=== PATIENT | male | born 1960 | race Two or more races ===

== ENCOUNTER 2025-02-21 19:14 | Inpatient (IN) | payer MEDICARE, OTHER ==
[~2025-02-21] VITALS: Ht 172.7 cm; Wt 72.6 kg
[2025-02-21 20:50] LABS: PLATELET COUNT (AUTO) 197 K/uL (150-450); RED BLOOD CELL COUNT(AUTO) 4.56 MIL/uL (4.5-6.0); RED CELL DISTRIBUTION WIDTH 14.0 % (11.5-15.0); WHITE BLOOD COUNT (AUTO) 5.0 K/uL (4.3-11.0)
[2025-02-21 20:57] LABS: CALCIUM, SERUM 8.7 mg/dL (8.5-10.1); CREATININE 0.8 mg/dL (0.6-1.3); SODIUM SERUM 136 mmol/L (136-145); UREA NITROGEN, BLOOD 7 mg/dL (7-18)
[2025-02-21 21:05] LABS: APPEARANCE,URINE CLEAR (CLEAR); BLOOD, URINE NEGATIVE Ery/uL (NEGATIVE); LEUKOCYTE ESTERASE ,URINE TRACE (NEGATIVE); NITRITE, URINE NEGATIVE (NEGATIVE); UGLUCOSE NEGATIVE (NEGATIVE)
[2025-02-21 21:17] LABS: AMPHETAMINE, URINE NEGATIVE (NEGATIVE); BARBITURATE, URINE NEGATIVE (NEGATIVE); BENZODIAZEPINE, URINE NEGATIVE (NEGATIVE); CANNABINOID, URINE NEGATIVE (NEGATIVE); COCCAINE, URINE NEGATIVE (NEGATIVE); OPIATE, URINE NEGATIVE (NEGATIVE)
[2025-02-21 21:17] LABS: ASPARTATE AMINOTRANSFERASE 17 U/L (15-37); TOTAL PROTEIN, SERUM 7.5 g/dL (6.4-8.2)
[2025-02-21 21:23] LABS: ADD URINE CULTURE YES; SQUAMOUS EPITHELIAL CELL,UR Many /HPF (None Seen)
[2025-02-21] MEDS ORDERED: CEPHALEXIN MONOHYDRATE 500 MG CAPSULE PO ONE (23:15)
[2025-02-21] MEDS: CEPHALEXIN MONOHYDRATE 500 MG CAPSULE PO ONE (23:18)
[2025-02-22] MEDS ORDERED: LORA-259 PO (01:20)
[2025-02-22] MEDS ORDERED: THIO2CAP2 PO (01:20)
[2025-02-22] MEDS ORDERED: BENZ1TAB7 PO (01:20)
[2025-02-22] MEDS ORDERED: OMEP20CA15 PO (01:20)
[2025-02-22] MEDS ORDERED: LEVO330T2 PO (01:20)
[2025-02-22] MEDS ORDERED: MELA3CAP2 PO (01:20)
[2025-02-22] MEDS ORDERED: OLANZAPINE 10 MG VIAL IM ONE (01:37)
[2025-02-22] MEDS: OLANZAPINE 10 MG VIAL IM ONE (01:39)
[2025-02-22] MEDS ORDERED: SODI100037 PO (02:06)
[2025-02-22] MEDS ORDERED: MAG HYDROX/AL HYDROX/SIMETH 30 ML UDC PO PRN (02:30)
[2025-02-22] MEDS: BLOOD SUGAR DIAGNOSTIC 1 EACH STRIP IN ONE (02:30)
[2025-02-22] MEDS ORDERED: TEMAZEPAM 7.5 MG CAPSULE PO PRN ×2 (02:30)
[2025-02-22] MEDS ORDERED: LORAZEPAM 1 MG TABLET PO PRN (02:30)
[2025-02-22] MEDS ORDERED: MAGNESIUM HYDROXIDE 30 ML UDC PO PRN (02:30)
[2025-02-22 03:06] VITALS: BP 128/75; TEMP 98; O2SAT 98
[2025-02-22] MEDS: SODIUM CHLORIDE 1000 MG TABLET PO SCH (08:50)
[2025-02-22] MEDS: PANTOPRAZOLE 40 MG TABLET.DR PO SCH (08:50)
[2025-02-22] MEDS: CEPHALEXIN MONOHYDRATE 500 MG CAPSULE PO SCH (08:50)
[2025-02-22] MEDS: LEVOCARNITINE 330 MG TABLET PO SCH (09:00)
[2025-02-22] MEDS: QUETIAPINE FUMARATE 25 MG TABLET PO SCH (13:30)
[2025-02-22 16:12] VITALS: BP 128/87; TEMP 97.9; O2SAT 97
[2025-02-23 08:00] VITALS: BP 142/97; TEMP 97.8; O2SAT 97
[2025-02-23] MEDS: OLANZAPINE 10 MG VIAL IM PRN (09:17)
[2025-02-25 08:13] VITALS: BP_SYST 109; TEMP 97.7; O2SAT 95
[2025-02-25 15:38] VITALS: BP 121/98; TEMP 97.5; O2SAT 97
[2025-02-25 19:50] VITALS: BP 127/88; TEMP 97.6; O2SAT 98
[2025-02-25] MEDS: QUETIAPINE FUMARATE 25 MG TABLET PO SCH (20:07)
[2025-02-26] MEDS: LORAZEPAM 1 MG TABLET PO PRN (03:21)
[2025-02-26 08:00] VITALS: BP 132/89; TEMP 97.7; O2SAT 99
[2025-02-26 16:06] VITALS: BP 136/97; TEMP 97.9; O2SAT 97
[2025-02-26] MEDS: QUETIAPINE FUMARATE 25 MG TABLET PO SCH ×2 (16:28→21:39)
[2025-02-27 08:00] VITALS: BP 111/65; TEMP 98.6; O2SAT 100
[2025-02-27] MEDS: HALOPERIDOL LACTATE INJ 5 MG/ML VIAL IM STA (08:42)
[2025-02-27] MEDS: LORAZEPAM INJ 2 MG/ML VIAL IM STA (08:42)
[2025-02-28] MEDS: ACETAMINOPHEN 325 MG TABLET PO PRN (04:33)
[2025-02-28 08:00] VITALS: BP 131/90; TEMP 98.1; O2SAT 98
== END 2025-02-28 14:55 | DRG 885 ==
LOC: ER 19:19 → GPS 02-22 01:11
PROVIDERS: ADMIT Psychiatry & Neurology Psychiatry; ATTEND Internal Medicine
DX: F25.0 Schizoaffective disorder, bipolar type (principal); F03.94 Unspecified dementia, unspecified severity, with anxiety; F29 Unspecified psychosis not due to a substance or known physiological condition; J44.9 Chronic obstructive pulmonary disease, unspecified; M19.90 Unspecified osteoarthritis, unspecified site; F41.9 Anxiety disorder, unspecified; F32.A Depression, unspecified; M62.81 Muscle weakness (generalized); Z91.199 Patient's noncompliance with other medical treatment and regimen due to unspecified reason
CPT/HCPCS: 36415; 80048-TC; 80076-TC; 81001; 85025-TC; 87086-TC; 97116-TC; 97530-TC; J1200; J1630; J2060; J3490